=== PATIENT | male | born 1955 | race Caucasian/White ===

== ENCOUNTER → 2017-01-07 | Outpatient (CLI) | payer MEDICARE | END | disposition home or self-care (01) | LOC: PCVCCLINIC 14:09 | PROVIDERS: ATTEND Internal Medicine | DX: I25.10 Atherosclerotic heart disease of native coronary artery without angina pectoris (principal); I10 Essential (primary) hypertension; E78.5 Hyperlipidemia, unspecified; E11.9 Type 2 diabetes mellitus without complications; G47.33 Obstructive sleep apnea (adult) (pediatric); Z87.891 Personal history of nicotine dependence; Z79.82 Long term (current) use of aspirin; Z79.899 Other long term (current) drug therapy; Z79.84 Long term (current) use of oral hypoglycemic drugs | CPT/HCPCS: 80061; 93005; G0463 ==

== ENCOUNTER → 2017-07-03 | Outpatient (CLI) | payer MEDICARE ==
[~2017-07-03] MED LIST: REGADENOSON 0.4 MG/5 ML DISP.SYRIN. IV ONE
--- NOTE | 2017-07-04 12:29 | PCVCIMAG ---
APPROVED REPORT Exam: Nuclear Stress Test Indication: CAD Patient Location: Out-Patient Stress Nurse: Ranjana Julian RN, Ranjana Julian RN AR Tech:TOMMIE Roberts Ht: 5 ft 10 in Wt: 208 lbs BSA: 2.12 m2 HR: 67 bpm BP: 124/70 mmHg BMI: 29.8 Rhythm: SR, First degree AV Block Medical History Medical History: HTN, Hyperlipidemia, Diabetes, CAD, Age, Former Smoker Medications: Aspirin, Atenolol, Irbesartan, Victoza, Metformin, Rosuvastatin Allergies: Morphine, Pneumovax 23 Previous Cardiac Procedures: PCI to RCA Pretest Chest Pain Characteristics: No chest pain NM EXAM: Myocardial Perfusion REST/STRESS Imaging Protocol: Rest Tc-99m/Stress Tc-99m 1 day Resting Data Rest SPECT myocardial perfusion imaging was performed in supine position 45 minutes following the intravenous injection of 10.5 mCi of Tc-99m Sestamibi. Time of rest injection: 0900 Date: 07/03/2017 Administration Route: IV Administration Site: Right Hand Pharmacologic Stress Pharmacologic stress test was performed by injecting Regadenoson 0.4 mg IV push followed by the intravenous injection of 33.7 mCi of Tc-99m Sestamibi. Time of stress injection: 1030 Date: 07/03/2017 Administration Route: IV Administration Site: Right Hand Gated Stress SPECT was performed 45 minutes after stress injection. The images were gated to evaluate regional wall motion and calculate left ventricular ejection fraction. Study Quality Study: Good Study Data Post stress, the left ventricular ejection was 66%.. SSS: 1 SRS: 6 SDS: 0 TID = 0.93. 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 No evidence of stress induced ischemia. 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 No evidence of stress induced ischemia. Post stress, the left ventricular ejection was 66%.. No prior study available for comparison. Interpreted by: Ahmet Miller MD Electronically Approved: 07/03/2017 22:34:44 Stress Test Details Stress Test: Pharmacologic stress was paired with low level exercise. Reason for pharmacologic stress test: physical limitation. HR Resting HR: 67 bpmMax Heart Rate (APMHR): 158 bpm Max HR Achieved: 93 bpmTarget HR (85% APMHR): 134 bpm % of APMHR: 58 Recovery HR: 80 bpm BP Resting BP: 124/70 mmHg Max BP: 133/64 mmHg ECG Resting ECG: Sinus Rhythm, 1st degree AV block Stress ECG: Sinus Rhythm, 1st degree AV block Maximum ST Deviation: 0 mm Arrhythmia: None Recovery ECG: Sinus Rhythm, 1st degree AV block Recovery ST Change: None Recovery ST Deviation: 0 mm Clinical Reason for Termination: Completed protocol Stress Symptoms: Dyspnea, Nausea Exercise duration: 4 min 00 sec Exercise capacity: 1.6 METs Symptoms resolved during recovery. Stress ECG Conclusion ECG: Non-ischemic Clinical: Non-ischemic <Conclusion> ECG: Non-ischemic Clinical: Non-ischemic
== END | disposition home or self-care (01) ==
LOC: PCVCIMAG 08:42
PROVIDERS: ATTEND Internal Medicine
DX: I25.10 Atherosclerotic heart disease of native coronary artery without angina pectoris (principal); I44.0 Atrioventricular block, first degree; I10 Essential (primary) hypertension; E11.9 Type 2 diabetes mellitus without complications; E78.5 Hyperlipidemia, unspecified; Z87.891 Personal history of nicotine dependence
CPT/HCPCS: 78452; 93017; A9500; J2785

== ENCOUNTER → 2017-07-05 | Outpatient (CLI) | payer MEDICARE | END | disposition home or self-care (01) | LOC: PCVCCLINIC 10:10 | PROVIDERS: ATTEND Internal Medicine | DX: I25.10 Atherosclerotic heart disease of native coronary artery without angina pectoris (principal); I10 Essential (primary) hypertension; G47.33 Obstructive sleep apnea (adult) (pediatric); E78.5 Hyperlipidemia, unspecified; E11.9 Type 2 diabetes mellitus without complications; Z87.891 Personal history of nicotine dependence; Z79.82 Long term (current) use of aspirin; Z79.899 Other long term (current) drug therapy; Z79.84 Long term (current) use of oral hypoglycemic drugs | CPT/HCPCS: 80061; 93005; G0463 ==

== ENCOUNTER → 2019-02-09 | Outpatient (CLI) | payer MEDICARE | END | disposition home or self-care (01) | LOC: PCVCCLINIC 13:00 | PROVIDERS: ATTEND Internal Medicine | DX: I25.10 Atherosclerotic heart disease of native coronary artery without angina pectoris (principal); I10 Essential (primary) hypertension; G47.33 Obstructive sleep apnea (adult) (pediatric); E78.5 Hyperlipidemia, unspecified; E11.9 Type 2 diabetes mellitus without complications; Z87.891 Personal history of nicotine dependence; Z88.5 Allergy status to narcotic agent; Z79.82 Long term (current) use of aspirin | CPT/HCPCS: 36415; 80061; 93005; G0463 ==